=== PATIENT | female | born 1945 | race Caucasian/White ===

== ENCOUNTER → 2016-10-19 | Outpatient (CLI) | payer MEDICARE, BC ==
[~2016-10-19] VITALS: Ht 162.6 cm; Wt 103.0 kg
[~2016-10-19] MED LIST: ASPIRIN 81M81 MG/TA2 PO; ASPIRIN E.C. 8181 MG PO; BENICAR 20MG TA20 MG PO; BETAPACE 80MG80 MG PO; CALCIUM/MAGNESI1 T14 PO; CARDIZEM CD 24240 MG PO; CENTRAL VITE PO; CEPHALEXIN500 M1 PO; COZAAR 25MG25 MG/TAB PO; COZAAR 50MG50 MG/TAB PO; ELIQUIS 5MG PO; HCTZ 25MG TAB25 MG PO; L-THYROXINE; LEXAPRO 10MG10 MG; LEXAPRO 10MG10 MG PO; MEDIUM CHAIN TRIGLYCERIDES PO; P MED; SSRI; SYNTHROID0.05 MG/TA PO; TAMBOCOR50 MG; VITAMIN B COMPL1 T16 PO; VITAMIN C500 MG PO; WELLBUTRIN XL150 MG PO; WELLBUTRIN XL300 M1 PO; [UNRECOGNIZED DRUG - OTHER]
[2016-10-19 15:35] VITALS: BP 119/61; PULSE 78
[2016-10-19 16:04] VITALS: BP 119/61; PULSE 78
== END ==
LOC: LIGHT 14:41
DX: I10 Essential (primary) hypertension (principal); E03.8 Other specified hypothyroidism; E66.09 Other obesity due to excess calories; Z68.38 Body mass index [BMI] 38.0-38.9, adult; R73.01 Impaired fasting glucose

== ENCOUNTER → 2016-11-23 | Outpatient (CLI) | payer MEDICARE, BC ==
[~2016-11-23] VITALS: Ht 162.6 cm; Wt 103.9 kg
[2016-11-23 15:35] VITALS: BP 128/76; PULSE 69
[2016-11-23 17:53] VITALS: BP 128/76; PULSE 69
== END ==
LOC: LIGHT 13:00
DX: I10 Essential (primary) hypertension (principal); E03.8 Other specified hypothyroidism; E66.09 Other obesity due to excess calories; Z68.39 Body mass index [BMI] 39.0-39.9, adult

== ENCOUNTER → 2016-12-21 | Outpatient (CLI) | payer MEDICARE, BC ==
[~2016-12-21] VITALS: Ht 162.6 cm; Wt 103.9 kg
[2016-12-21 15:33] VITALS: BP 132/70; PULSE 84
== END ==
LOC: LIGHT 12:00
DX: I10 Essential (primary) hypertension (principal); E03.8 Other specified hypothyroidism; E66.8 Other obesity; R73.01 Impaired fasting glucose; Z68.39 Body mass index [BMI] 39.0-39.9, adult

== ENCOUNTER → 2017-01-18 | Outpatient (CLI) | payer MEDICARE, BC ==
[~2017-01-18] VITALS: Ht 162.6 cm; Wt 105.5 kg
[2017-01-18 15:33] VITALS: BP 124/75; PULSE 77
== END ==
LOC: LIGHT 09:18
DX: I10 Essential (primary) hypertension (principal); E03.8 Other specified hypothyroidism; E66.8 Other obesity; Z68.41 Body mass index [BMI] 40.0-44.9, adult; R73.01 Impaired fasting glucose

== ENCOUNTER → 2017-02-15 | Outpatient (CLI) | payer MEDICARE, BC ==
[~2017-02-15] VITALS: Ht 162.6 cm; Wt 104.1 kg
[2017-02-15 16:36] VITALS: BP 110/70; PULSE 76
== END ==
LOC: LIGHT 10:40
DX: Z02.89 Encounter for other administrative examinations (principal)

== ENCOUNTER → 2017-03-22 | Outpatient (CLI) | payer MEDICARE, BC ==
[~2017-03-22] VITALS: Ht 162.6 cm; Wt 102.6 kg
[2017-03-22 15:20] VITALS: BP 100/64; PULSE 70
== END ==
LOC: LIGHT 12:19
DX: I10 Essential (primary) hypertension (principal); E03.9 Hypothyroidism, unspecified; E66.9 Obesity, unspecified; Z71.3 Dietary counseling and surveillance; R73.01 Impaired fasting glucose

== ENCOUNTER → 2017-04-19 | Outpatient (CLI) | payer MEDICARE, BC ==
[~2017-04-19] VITALS: Ht 162.6 cm; Wt 100.7 kg
[2017-04-19 15:35] VITALS: BP 104/50; PULSE 68
== END ==
LOC: LIGHT 09:23
DX: I10 Essential (primary) hypertension (principal); E03.9 Hypothyroidism, unspecified; E66.9 Obesity, unspecified; Z68.37 Body mass index [BMI] 37.0-37.9, adult; Z71.3 Dietary counseling and surveillance; R73.01 Impaired fasting glucose

== ENCOUNTER → 2017-05-17 | Outpatient (CLI) | payer MEDICARE, BC ==
[~2017-05-17] VITALS: Ht 162.6 cm; Wt 97.5 kg
[2017-05-17 15:28] VITALS: BP 140/70; PULSE 76
== END ==
LOC: LIGHT 15:21
DX: E66.9 Obesity, unspecified (principal); Z68.36 Body mass index [BMI] 36.0-36.9, adult; Z71.3 Dietary counseling and surveillance

== ENCOUNTER → 2017-06-21 | Outpatient (CLI) | payer MEDICARE, BC ==
[~2017-06-21] VITALS: Ht 165.1 cm; Wt 96.8 kg
[2017-06-21 15:25] VITALS: BP 126/60; PULSE 72
== END ==
LOC: BHSO 05-17 16:01 → LIGHT 05-17 16:04
DX: I10 Essential (primary) hypertension (principal); E03.9 Hypothyroidism, unspecified; E66.9 Obesity, unspecified; Z68.35 Body mass index [BMI] 35.0-35.9, adult; Z71.3 Dietary counseling and surveillance; R73.01 Impaired fasting glucose

== ENCOUNTER → 2017-07-19 | Outpatient (CLI) | payer MEDICARE, BC ==
[~2017-07-19] VITALS: Ht 165.1 cm; Wt 97.5 kg
[2017-07-19 15:22] VITALS: BP 126/56; PULSE 72
== END ==
LOC: LIGHT 10:28
DX: I10 Essential (primary) hypertension (principal); E03.9 Hypothyroidism, unspecified; E66.9 Obesity, unspecified; Z68.35 Body mass index [BMI] 35.0-35.9, adult; Z71.3 Dietary counseling and surveillance; R73.01 Impaired fasting glucose

== ENCOUNTER → 2017-08-23 | Outpatient (CLI) | payer MEDICARE, BC ==
[~2017-08-23] VITALS: Ht 165.1 cm; Wt 97.5 kg
[~2017-08-23] MED LIST changes: -LEXAPRO 10MG10 MG
[2017-08-23 15:30] VITALS: BP 110/58; PULSE 60
== END ==
LOC: LIGHT 10:21
DX: I10 Essential (primary) hypertension (principal); E03.9 Hypothyroidism, unspecified; E66.9 Obesity, unspecified; Z68.35 Body mass index [BMI] 35.0-35.9, adult; Z71.3 Dietary counseling and surveillance; R73.01 Impaired fasting glucose

== ENCOUNTER → 2017-09-20 | Outpatient (CLI) | payer MEDICARE, BC ==
[~2017-09-20] VITALS: Ht 165.1 cm; Wt 98.9 kg
[2017-09-20 15:21] VITALS: BP 104/52; PULSE 72
== END ==
LOC: LIGHT 10:16
DX: I10 Essential (primary) hypertension (principal); E03.9 Hypothyroidism, unspecified; E66.9 Obesity, unspecified; Z68.35 Body mass index [BMI] 35.0-35.9, adult; Z71.3 Dietary counseling and surveillance; R73.01 Impaired fasting glucose

== ENCOUNTER → 2017-10-18 | Outpatient (CLI) | payer MEDICARE, BC ==
[~2017-10-18] VITALS: Ht 165.1 cm; Wt 99.1 kg
[2017-10-18 15:39] VITALS: BP 118/76; PULSE 68
== END ==
LOC: LIGHT 15:28
DX: I10 Essential (primary) hypertension (principal); E03.9 Hypothyroidism, unspecified; E66.9 Obesity, unspecified; Z71.3 Dietary counseling and surveillance; R73.01 Impaired fasting glucose
CPT/HCPCS: G0463

== ENCOUNTER → 2017-11-15 | Outpatient (CLI) | payer MEDICARE, BC ==
[~2017-11-15] VITALS: Ht 165.1 cm; Wt 99.1 kg
[2017-11-15 15:16] VITALS: BP 140/72; PULSE 80
== END ==
LOC: LIGHT 10:17
DX: I10 Essential (primary) hypertension (principal); E03.9 Hypothyroidism, unspecified; E66.9 Obesity, unspecified; Z68.36 Body mass index [BMI] 36.0-36.9, adult; Z71.3 Dietary counseling and surveillance; R73.01 Impaired fasting glucose
CPT/HCPCS: G0463

== ENCOUNTER → 2017-12-13 | Outpatient (CLI) | payer MEDICARE, BC ==
[~2017-12-13] VITALS: Ht 165.1 cm; Wt 100.2 kg
[2017-12-13 15:33] VITALS: BP 116/60; PULSE 68
== END ==
LOC: LIGHT 15:24
DX: I10 Essential (primary) hypertension (principal); E03.9 Hypothyroidism, unspecified; E66.9 Obesity, unspecified; Z68.36 Body mass index [BMI] 36.0-36.9, adult; Z71.3 Dietary counseling and surveillance; R73.01 Impaired fasting glucose
CPT/HCPCS: G0463

== ENCOUNTER → 2018-01-17 | Outpatient (CLI) | payer MEDICARE, BC ==
[~2018-01-17] VITALS: Ht 165.1 cm; Wt 101.1 kg
[2018-01-17 15:31] VITALS: BP 124/68; PULSE 80
== END ==
LOC: LIGHT 09:03
DX: I10 Essential (primary) hypertension (principal); E03.9 Hypothyroidism, unspecified; E66.9 Obesity, unspecified; Z68.37 Body mass index [BMI] 37.0-37.9, adult; Z71.3 Dietary counseling and surveillance; R73.01 Impaired fasting glucose
CPT/HCPCS: G0463

== ENCOUNTER → 2018-02-14 | Outpatient (CLI) | payer MEDICARE, BC ==
[~2018-02-14] VITALS: Ht 165.1 cm; Wt 101.2 kg
[~2018-02-14] MED LIST changes: +CARDIZEM CD 18180 MG PO; -TAMBOCOR50 MG; +TAMBOCOR50 MG PO
[2018-02-14 15:24] VITALS: BP 124/62; PULSE 72
== END ==
LOC: LIGHT 15:08
DX: I10 Essential (primary) hypertension (principal); E03.9 Hypothyroidism, unspecified; E66.9 Obesity, unspecified; Z68.36 Body mass index [BMI] 36.0-36.9, adult; Z71.3 Dietary counseling and surveillance; R73.01 Impaired fasting glucose
CPT/HCPCS: G0463

== ENCOUNTER → 2018-03-21 | Outpatient (CLI) | payer MEDICARE, BC ==
[~2018-03-21] VITALS: Ht 165.1 cm; Wt 103.9 kg
[2018-03-21 15:33] VITALS: BP 132/50; PULSE 72
== END ==
LOC: LIGHT 15:17
DX: I10 Essential (primary) hypertension (principal); E03.9 Hypothyroidism, unspecified; E66.9 Obesity, unspecified; Z68.37 Body mass index [BMI] 37.0-37.9, adult; Z71.3 Dietary counseling and surveillance; R73.01 Impaired fasting glucose
CPT/HCPCS: G0463

== ENCOUNTER → 2018-04-18 | Outpatient (CLI) | payer MEDICARE, BC ==
[~2018-04-18] VITALS: Ht 165.1 cm; Wt 102.1 kg
[2018-04-18 15:59] VITALS: BP 120/56; PULSE 76
== END ==
LOC: LIGHT 15:47
DX: E03.9 Hypothyroidism, unspecified (principal); E66.9 Obesity, unspecified; Z68.37 Body mass index [BMI] 37.0-37.9, adult; Z71.3 Dietary counseling and surveillance; R73.01 Impaired fasting glucose
CPT/HCPCS: G0463

== ENCOUNTER → 2018-05-02 | Outpatient (CLI) | payer MEDICARE, BC | LOC: MC.RAD 09:59 | DX: Z12.31 Encounter for screening mammogram for malignant neoplasm of breast (principal); R92.0 Mammographic microcalcification found on diagnostic imaging of breast ==

== ENCOUNTER → 2018-05-23 | Outpatient (CLI) | payer MEDICARE, BC ==
[~2018-05-23] VITALS: Ht 163.8 cm; Wt 103.2 kg
[2018-05-23 15:37] VITALS: BP 116/56; PULSE 72
== END ==
LOC: LIGHT 11:21
DX: I10 Essential (primary) hypertension (principal); E03.9 Hypothyroidism, unspecified; R73.01 Impaired fasting glucose; E66.9 Obesity, unspecified; Z68.38 Body mass index [BMI] 38.0-38.9, adult; Z71.3 Dietary counseling and surveillance
CPT/HCPCS: G0463

== ENCOUNTER → 2018-07-18 | Outpatient (CLI) | payer MEDICARE, BC ==
[~2018-07-18] VITALS: Ht 163.8 cm; Wt 104.8 kg
[2018-07-18 15:19] VITALS: BP 132/54; PULSE 80
== END ==
LOC: LIGHT 11:59
DX: I10 Essential (primary) hypertension (principal); E03.9 Hypothyroidism, unspecified; R73.01 Impaired fasting glucose; E66.9 Obesity, unspecified; Z68.38 Body mass index [BMI] 38.0-38.9, adult; Z71.3 Dietary counseling and surveillance
CPT/HCPCS: G0463

== ENCOUNTER → 2018-08-22 | Outpatient (CLI) | payer MEDICARE, BC ==
[~2018-08-22] VITALS: Ht 163.8 cm; Wt 104.1 kg
[2018-08-22 15:35] VITALS: BP 132/64; PULSE 72
== END ==
LOC: LIGHT 09:18
DX: I10 Essential (primary) hypertension (principal); E03.9 Hypothyroidism, unspecified; R73.01 Impaired fasting glucose; E66.9 Obesity, unspecified; Z68.38 Body mass index [BMI] 38.0-38.9, adult; Z71.3 Dietary counseling and surveillance
CPT/HCPCS: G0463

== ENCOUNTER → 2018-09-19 | Outpatient (CLI) | payer MEDICARE, BC ==
[~2018-09-19] VITALS: Ht 163.8 cm; Wt 103.4 kg
[2018-09-19 15:26] VITALS: BP 118/58; PULSE 68
== END ==
LOC: LIGHT 15:15
DX: I10 Essential (primary) hypertension (principal); E03.9 Hypothyroidism, unspecified; R73.01 Impaired fasting glucose; E66.9 Obesity, unspecified; Z68.38 Body mass index [BMI] 38.0-38.9, adult; Z71.3 Dietary counseling and surveillance
CPT/HCPCS: G0463

== ENCOUNTER → 2018-10-17 | Outpatient (CLI) | payer MEDICARE, BC ==
[~2018-10-17] VITALS: Ht 163.8 cm; Wt 103.0 kg
[2018-10-17 15:35] VITALS: BP 112/60; PULSE 88
== END ==
LOC: LIGHT 14:22
DX: I10 Essential (primary) hypertension (principal); E03.9 Hypothyroidism, unspecified; R73.01 Impaired fasting glucose; E66.9 Obesity, unspecified; Z71.3 Dietary counseling and surveillance
CPT/HCPCS: G0463

== ENCOUNTER → 2018-12-19 | Outpatient (CLI) | payer MEDICARE, BC ==
[~2018-12-19] VITALS: Ht 163.8 cm; Wt 102.7 kg
[2018-12-19 15:27] VITALS: BP 120/56; PULSE 72
== END ==
LOC: LIGHT 11-21 15:07
DX: I10 Essential (primary) hypertension (principal); E03.9 Hypothyroidism, unspecified; R73.01 Impaired fasting glucose; E66.9 Obesity, unspecified; Z68.38 Body mass index [BMI] 38.0-38.9, adult; Z71.3 Dietary counseling and surveillance
CPT/HCPCS: G0463

== ENCOUNTER → 2019-01-16 | Outpatient (CLI) | payer MEDICARE, BC ==
[~2019-01-16] VITALS: Ht 163.8 cm; Wt 102.1 kg
[2019-01-16 15:39] VITALS: BP 124/64; PULSE 80
== END ==
LOC: LIGHT 10:43
DX: I10 Essential (primary) hypertension (principal); E03.9 Hypothyroidism, unspecified; R73.01 Impaired fasting glucose; E66.9 Obesity, unspecified; Z68.37 Body mass index [BMI] 37.0-37.9, adult; Z71.3 Dietary counseling and surveillance
CPT/HCPCS: G0463

== ENCOUNTER → 2019-02-20 | Outpatient (CLI) | payer MEDICARE, BC ==
[~2019-02-20] VITALS: Ht 163.8 cm; Wt 103.0 kg
[2019-02-20 15:23] VITALS: BP 140/70; PULSE 80
== END ==
LOC: LIGHT 14:54
DX: I10 Essential (primary) hypertension (principal); E03.9 Hypothyroidism, unspecified; R73.01 Impaired fasting glucose; E66.9 Obesity, unspecified; Z68.38 Body mass index [BMI] 38.0-38.9, adult; Z71.3 Dietary counseling and surveillance
CPT/HCPCS: G0463

== ENCOUNTER → 2019-03-19 | Outpatient (CLI) | payer MEDICARE, BC ==
[~2019-03-19] MED LIST changes: +MOTRIN 600600 MG/TAB PO
== END ==
LOC: COL.RAD 02-26 07:30
DX: M50.322 Other cervical disc degeneration at C5-C6 level (principal); M50.222 Other cervical disc displacement at C5-C6 level; M48.02 Spinal stenosis, cervical region; Z95.0 Presence of cardiac pacemaker

== ENCOUNTER → 2019-03-20 | Outpatient (CLI) | payer MEDICARE, BC ==
[~2019-03-20] VITALS: Ht 163.8 cm; Wt 103.4 kg
[2019-03-20 15:31] VITALS: BP 140/60; PULSE 68
== END ==
LOC: LIGHT 11:39
DX: I10 Essential (primary) hypertension (principal); E03.9 Hypothyroidism, unspecified; R73.01 Impaired fasting glucose; E66.9 Obesity, unspecified; Z68.38 Body mass index [BMI] 38.0-38.9, adult; Z71.3 Dietary counseling and surveillance
CPT/HCPCS: G0463

== ENCOUNTER → 2019-04-17 | Outpatient (CLI) | payer MEDICARE, BC ==
[~2019-04-17] VITALS: Ht 163.8 cm; Wt 100.9 kg
[2019-04-17 15:30] VITALS: BP 148/52; PULSE 68
== END ==
LOC: LIGHT 15:23
DX: I10 Essential (primary) hypertension (principal); E03.9 Hypothyroidism, unspecified; R73.01 Impaired fasting glucose; E66.9 Obesity, unspecified; Z68.37 Body mass index [BMI] 37.0-37.9, adult; Z71.3 Dietary counseling and surveillance
CPT/HCPCS: G0463

== ENCOUNTER → 2019-05-22 | Outpatient (CLI) | payer MEDICARE, BC ==
[~2019-05-22] VITALS: Ht 163.8 cm; Wt 100.0 kg
[2019-05-22 15:24] VITALS: BP 100/50; PULSE 68
== END ==
LOC: LIGHT 09:49
DX: I10 Essential (primary) hypertension (principal); E03.9 Hypothyroidism, unspecified; R73.01 Impaired fasting glucose; E66.9 Obesity, unspecified; Z68.37 Body mass index [BMI] 37.0-37.9, adult; Z71.3 Dietary counseling and surveillance
CPT/HCPCS: G0463

== ENCOUNTER 2019-05-23 13:06 | Outpatient (RCR) | payer MEDICARE, BC ==
[~2019-05-23 13:06] MED LIST changes: -CENTRAL VITE PO; +MULTI VITAMINS1 TAB PO; +TAMBOCOR 1100 MG/TAB PO; -TAMBOCOR50 MG PO
[2019-09-18] MEDS ORDERED: ELIQUIS 2.5 PO (15:21)
[2019-09-28] MEDS ORDERED: COZAAR 50MG50 MG/TAB PO (09:30)
[2019-09-28] MEDS ORDERED: COZAAR 25MG25 MG/TAB PO (14:56)
[2019-09-28] MEDS ORDERED: ELIQUIS 5MG PO (14:58)
[2019-09-28] MEDS ORDERED: LEXAPRO 10MG10 MG PO (16:15)
== END 2019-08-21 | disposition home or self-care (01) ==
LOC: WSC
DX: G56.01 Carpal tunnel syndrome, right upper limb (principal); M65.9 Synovitis and tenosynovitis, unspecified

== ENCOUNTER → 2019-06-19 | Outpatient (CLI) | payer MEDICARE, BC ==
[~2019-06-19] VITALS: Ht 163.8 cm; Wt 99.1 kg
[~2019-06-19] MED LIST changes: +CENTRAL VITE PO; -MULTI VITAMINS1 TAB PO; -TAMBOCOR 1100 MG/TAB PO; +TAMBOCOR50 MG PO
[2019-06-19 15:33] VITALS: BP 126/60; PULSE 72
== END ==
LOC: LIGHT 11:44
DX: I10 Essential (primary) hypertension (principal); E03.9 Hypothyroidism, unspecified; R73.01 Impaired fasting glucose; E66.9 Obesity, unspecified; Z68.36 Body mass index [BMI] 36.0-36.9, adult; Z71.3 Dietary counseling and surveillance
CPT/HCPCS: G0463

== ENCOUNTER 2019-06-27 10:00 | Outpatient (RCR) | payer MEDICARE, BC | END 2019-07-18 13:36 | disposition home or self-care (01) | LOC: WSOT 10:00 | DX: M54.12 Radiculopathy, cervical region (principal); R20.2 Paresthesia of skin ==

== ENCOUNTER → 2019-07-17 | Outpatient (CLI) | payer MEDICARE, BC ==
[~2019-07-17] VITALS: Ht 163.8 cm; Wt 100.0 kg
[2019-07-17 15:26] VITALS: BP 106/64; PULSE 80
== END ==
LOC: LIGHT 14:49
DX: I10 Essential (primary) hypertension (principal); E03.9 Hypothyroidism, unspecified; R73.01 Impaired fasting glucose; E66.9 Obesity, unspecified; Z68.36 Body mass index [BMI] 36.0-36.9, adult; Z71.3 Dietary counseling and surveillance
CPT/HCPCS: G0463

== ENCOUNTER → 2019-08-21 | Outpatient (CLI) | payer MEDICARE, BC ==
[~2019-08-21] VITALS: Ht 163.8 cm; Wt 100.7 kg
[2019-08-21 15:30] VITALS: BP 124/50; PULSE 80
== END ==
LOC: LIGHT 15:19
DX: I10 Essential (primary) hypertension (principal); E03.9 Hypothyroidism, unspecified; R73.01 Impaired fasting glucose; E66.9 Obesity, unspecified; Z68.37 Body mass index [BMI] 37.0-37.9, adult; Z71.3 Dietary counseling and surveillance
CPT/HCPCS: G0463

== ENCOUNTER 2019-09-30 10:26 | Emergency (ER) | payer MEDICARE, BC ==
[~2019-09-30] VITALS: Ht 162.6 cm; Wt 102.3 kg
[~2019-09-30 10:26] MED LIST changes: -CENTRAL VITE PO; +ELIQUIS 2.5 PO; +MULTI VITAMINS1 TAB PO; +TAMBOCOR 1100 MG/TAB PO; -TAMBOCOR50 MG PO
[2019-09-30 10:42] VITALS: TEMP 96.3
[2019-09-30 11:13] LABS: BASO # 0.1 (0.0-0.2); BASO % 0.6 % (0.0-2.0); EOS # 0.1 (0.0-0.7); EOS % 1.3 % (0-4.0); GRAN # 6.3 (1.4-6.5); GRAN % 69.6 % (42.2-75.2); HEMATOCRIT 42.8 % (37.0-47.0); LYMPH # 1.8 (1.2-3.4); LYMPH % 19.8 % (20.0-51.0); MEAN CELL VOLUME 91 fl (80.0-100.0); MEAN CORPUSCULAR HEMOGLOBIN 30 pg (27.0-31.0); MEAN CORPUSCULAR HGB CONC 33 g/dl (33.0-37.0); MEAN PLATELET VOLUME 11.1 fl (7.4-10.4); MONO # 0.7 (0.1-0.6); PLATELET COUNT 220 K/mm3 (130-400); RED BLOOD COUNT 4.69 M/mm3 (4.10-5.30); REDCELL DISTRIBUTION WIDTH-CV 14.1 % (11.5-14.5)
[2019-09-30 11:19] LABS: ALANINE AMINOTRANSFERASE 42 U/L (9-52); ALBUMIN 3.8 gm/dL (3.5-5.0); ALKALINE PHOSPHATASE 92 U/L (50-136); ANION GAP 5 mmol/L (7-16); AST,SGOT 28 U/L (15-37); BILIRUBIN,TOTAL 0.5 mg/dL (0.0-1.0); BLOOD UREA NITROGEN 14 mg/dL (7-17); CALCIUM 8.7 mg/dL (8.4-10.2); CARBON DIOXIDE 31 mmol/L (22-30); CHLORIDE 105 mmol/L (98-107); CREATININE, serum 0.58 (0.52-1.25); GLUCOSE 115 mg/dL (74-106); LIPASE 90 U/L (23-300); SODIUM 141 mmol/L (137-145); TOTAL PROTEIN 6.7 gm/dL (6.4-8.2)
[2019-09-30 11:20] LABS: INR 1.2 (0.8-3.0); PROTHROMBIN TIME 14.1 SECONDS (9.7-12.8)
[2019-09-30 11:46] LABS: TROPONIN-I < 0.012 ng/mL (0.000-0.035)
[2019-09-30 11:54] LABS: ARTERIAL BLD GAS TCO2 CT 30.8; ARTERIAL BLOOD GAS HCO3 29.5 meq/L (22-26); ARTERIAL BLOOD GAS PCO2 42.9 mmHg (35-45); ARTERIAL BLOOD GAS pH 7.46 (7.35-7.45)
[2019-09-30] MEDS ORDERED: LASIX 20MG TABL20 MG PO (14:13)
[2019-09-30 14:23] VITALS: BP 149/74; PULSE 67
== END 2019-09-30 14:23 | disposition home or self-care (01) ==
LOC: COL.ER 10:26
PROVIDERS: Emergency Medicine
DX: I50.9 Heart failure, unspecified (principal); I48.91 Unspecified atrial fibrillation; Z79.82 Long term (current) use of aspirin
CPT/HCPCS: J1940; Q9967

== ENCOUNTER 2019-12-14 07:43 | Day surgery (SDC) | payer MEDICARE, BC ==
[~2019-12-14] VITALS: Ht 162.7 cm; Wt 97.0 kg
[~2019-12-14 07:43] MED LIST changes: +LASIX 20MG TABL20 MG PO; +PACERONE100 MG PO
[2019-12-14 08:24] VITALS: BP 150/85; PULSE 90; TEMP 98.2
[2019-12-14] MEDS ORDERED: LEXAPRO 10MG10 MG PO (08:44)
[2019-12-14 08:49] LABS: INR 1.1 (0.8-3.0); PROTHROMBIN TIME 12.7 SECONDS (9.7-12.8)
[2019-12-14 08:54] LABS: POTASSIUM 4.6 mmol/L (3.4-5.0)
[2019-12-14 09:27] LABS: THYROID STIMULATING HORMONE 3.56 uIU/mL (0.465-4.680)
[2019-12-14 10:15] VITALS: BP 119/60; PULSE 65
--- NOTE | 2019-12-14 10:15 | NUR ---
received report from Tika RN, pt is awake and alert, hob elevated 40 degrees, EKG done, pt is in NSR. takes water, call light in reach
[2019-12-14 10:30] VITALS: BP 122/61; PULSE 67
[2019-12-14 10:45] VITALS: BP 133/69; PULSE 67
--- NOTE | 2019-12-14 10:45 | NUR ---
takes snack, reads book, no c/o
[2019-12-14 11:00] VITALS: BP 129/60; PULSE 63
--- NOTE | 2019-12-14 11:00 | NUR ---
pt sits on side of bed, reviewed discharge inst. with pt on activity, driving, and moderate sedation. pt states has followup appt with Dr. Duncan in 2 weeks. pt has medication change to DC cardiozem, and no new RX, verbal understanding. pt up in room, dressed, and int d'cd intact. Called taxi for pt, phone number provided by [employer].
--- NOTE | 2019-12-14 11:30 | NUR ---
pt discharged via w/c to entrance for taxi
== END 2019-12-14 11:40 | disposition home or self-care (01) ==
LOC: COL.CAR 07:43
PROVIDERS: Internal Medicine Interventional Cardiology
DX: I48.0 Paroxysmal atrial fibrillation (principal); Z79.01 Long term (current) use of anticoagulants; I49.5 Sick sinus syndrome; Z95.0 Presence of cardiac pacemaker; E03.9 Hypothyroidism, unspecified; G62.9 Polyneuropathy, unspecified; E66.9 Obesity, unspecified; I11.0 Hypertensive heart disease with heart failure; I50.9 Heart failure, unspecified; I42.0 Dilated cardiomyopathy; I34.0 Nonrheumatic mitral (valve) insufficiency; Z88.5 Allergy status to narcotic agent
CPT/HCPCS: J2704; J7030

== ENCOUNTER → 2019-12-18 | Outpatient (CLI) | payer MEDICARE, BC ==
[~2019-12-18] VITALS: Ht 162.6 cm; Wt 97.3 kg
[2019-12-18 15:32] VITALS: BP 136/70; PULSE 64
== END ==
LOC: LIGHT 11-20 15:11
DX: I10 Essential (primary) hypertension (principal); R73.01 Impaired fasting glucose; I48.91 Unspecified atrial fibrillation
CPT/HCPCS: G0463

== ENCOUNTER → 2020-03-25 | Outpatient (CLI) | payer MEDICARE, BC ==
[~2020-03-25] VITALS: Ht 162.6 cm; Wt 90.7 kg
[2020-03-25 15:30] VITALS: BP 100/70; PULSE 72
== END ==
LOC: LIGHT 15:22
DX: E66.8 Other obesity (principal); Z68.34 Body mass index [BMI] 34.0-34.9, adult; I10 Essential (primary) hypertension; E03.9 Hypothyroidism, unspecified
CPT/HCPCS: G0463

== ENCOUNTER → 2020-04-22 | Outpatient (CLI) | payer MEDICARE, BC ==
[~2020-04-22] VITALS: Ht 162.6 cm; Wt 90.7 kg
[2020-04-22 16:24] VITALS: BP 138/80; PULSE 82
== END ==
LOC: LIGHT 11:46
DX: E66.8 Other obesity (principal); Z68.34 Body mass index [BMI] 34.0-34.9, adult; I10 Essential (primary) hypertension; E03.9 Hypothyroidism, unspecified; R73.01 Impaired fasting glucose
CPT/HCPCS: G0463

== ENCOUNTER → 2020-05-20 | Outpatient (CLI) | payer MEDICARE, BC ==
[~2020-05-20] VITALS: Ht 162.6 cm; Wt 90.9 kg
[2020-05-20 15:39] VITALS: BP 108/54; PULSE 68
== END ==
LOC: LIGHT 10:44
DX: E66.8 Other obesity (principal); Z68.34 Body mass index [BMI] 34.0-34.9, adult; I10 Essential (primary) hypertension; E03.9 Hypothyroidism, unspecified; R73.01 Impaired fasting glucose
CPT/HCPCS: G0463

== ENCOUNTER → 2020-06-17 | Outpatient (CLI) | payer MEDICARE, BC ==
[~2020-06-17] VITALS: Ht 162.6 cm; Wt 89.1 kg
[2020-06-17 16:10] VITALS: BP 106/70; PULSE 72
== END ==
LOC: LIGHT 14:50
DX: E66.8 Other obesity (principal); Z68.33 Body mass index [BMI] 33.0-33.9, adult
CPT/HCPCS: G0463

== ENCOUNTER → 2020-08-19 | Outpatient (CLI) | payer MEDICARE, BC ==
[~2020-08-19] VITALS: Ht 162.6 cm; Wt 88.0 kg
[~2020-08-19] MED LIST changes: +TOPROL XL 50MG50 MG PO
[2020-08-19 15:45] VITALS: BP 118/52; PULSE 72
== END ==
LOC: LIGHT 10:25
DX: E66.8 Other obesity (principal); Z68.34 Body mass index [BMI] 34.0-34.9, adult; I10 Essential (primary) hypertension; R73.01 Impaired fasting glucose
CPT/HCPCS: G0463

== ENCOUNTER 2021-12-04 09:56 | Inpatient (IN) | payer MEDICARE, BC ==
[2021-12-04] VITALS (284 sets, daily range): BP systolic 131–140; BP diastolic 94–95; PULSE 142–143; TEMP 98.1–98.4; O2SAT 84–100
[~2021-12-04] VITALS: Ht 162.6 cm; Wt 89.5 kg
[2021-12-04] MEDS ORDERED: ASPIRIN 81M81 MG/TA2 PO (10:16)
[2021-12-04 10:34] LABS: BASO # 0.1 K/mm3 (0.0-0.2); BASO % 0.7 % (0.0-2.0); EOS # 0.2 K/mm3 (0.0-0.7); EOS % 1.5 % (0.0-4.0); GRAN # 7.4 K/mm3 (1.4-6.5); GRAN % 66.9 % (42.2-75.2); HEMATOCRIT 41.5 % (37.0-47.0); HEMOGLOBIN 13.8 g/dl (12.5-16.0); LYMPH # 2.4 K/mm3 (1.2-3.4); LYMPH % 21.7 % (20.0-51.0); MEAN CELL VOLUME 92 fl (80.0-100.0); MEAN CORPUSCULAR HEMOGLOBIN 31 pg (27-31); MEAN CORPUSCULAR HGB CONC 33 g/dl (33.0-37.0); MEAN PLATELET VOLUME 11.3 fl (7.4-10.4); MONO % 8.6 % (1.7-9.3); PLATELET COUNT 299 K/mm3 (130-400); RED BLOOD COUNT 4.53 M/mm3 (4.10-5.30); REDCELL DISTRIBUTION WIDTH-CV 14.6 % (11.5-14.5)
[2021-12-04 10:43] LABS: ALBUMIN 3.6 gm/dL (3.4-4.8); BILIRUBIN,TOTAL 0.7 mg/dL (0.2-1.2); CALCIUM 9.2 mg/dL (8.4-10.2); CREATININE, serum 0.77 mg/dL (0.57-1.11); POTASSIUM 4.4 mmol/L (3.5-4.5); TOTAL PROTEIN 6.7 gm/dL (6.2-8.1)
[2021-12-04 10:49] LABS: TROPONIN-I 0.011 ng/mL (0.00-0.033)
[2021-12-04] MEDS ORDERED: LEXAPRO20 MG PO (10:58)
[2021-12-04 12:17] LABS: COLLECTION METHOD CLEAN CATCH
[2021-12-04 12:26] LABS: MUCOUS Present (NOT PRESENT); PH 6 (5-8); SQUAMOUS EPITHELIAL 0-2 /hpf (0-10); URINE APPEARANCE Clear (CLEAR/HAZY); URINE BACTERIA None Seen /hpf (NONE SEEN); URINE BILIRUBIN Negative (NEGATIVE); URINE BLOOD 2+ (NEGATIVE); URINE COLOR Yellow (YELLOW); URINE GLUCOSE Negative (NEGATIVE); URINE KETONE Negative (NEGATIVE); URINE LEUKOCYTE ESTERASE Trace (NEGATIVE); URINE NITRATE Negative (NEGATIVE); URINE PROTEIN(semi-quant) Negative (NEGATIVE); URINE UROBILINOGEN Negative (NEGATIVE)
--- NOTE | 2021-12-04 15:28 | NUR ---
PT ARRIVES TO THE MEDICAL FLOOR ROOM 318 BY ED STAFF AT ABOUT 1415, PT [id number], 02 ROOM AIR, PT ABLE TO AMBULATE TO BED INDEPENDENTLY, PT CURRENTLY DENIES SOA, N,V,D, PALPITATIONS WHILE SITTING. HEART RATE IN THE 140'S, DIASTOLIC ELEVATED. ASSESMENT COMPLETE. MED REC COMPLETE. POC DISCUSSED WITH PT. PT VERBALIZES UNDERSTANDING. ALL QUESTIONS/CONCERNS ANSWERED. THIS NURSE RECEIVED ORDERS TO TRANSFER PT TO ICU-06, PT CURRENTLY EATING SUPPER. THIS NURSE WILL ASSIST TRANSFER DOWNSTAIRS. VITALS MACHINE ON Q1 INTERVAL. ALL NEEDS MET AT THIS TIME. CALL LIGHT WITHIN REACH.
--- NOTE | 2021-12-04 15:41 | NUR ---
AMIADORONE DROP INITATED AT 1520, PT TOLERATING WELL THUS FAR. VITALS LICENSED CHEMICAL SPRAY TECHNICIAN ON Q1 INTERVAL. THIS NURSE D/W PT ADVERSE S/S TO REPORT. PT VERBALIZES UNDERSTANDING.
--- NOTE | 2021-12-04 17:30 | NUR ---
THIS NURSE PROVIDED REPORT TO UDAY SPANGLER, THIS NURSE WILL ASSIST INVESTIGATIVE ANALYST TO TRANSFER TO ICU-06 VIA WHEELCHAIR. PT BELONGINGS WITH HER. ALL NEEDS MET AT THIS TIME. TRANSFER AT 1730.
--- NOTE | 2021-12-04 18:00 | NUR ---
PT TO UNIT FROM MEDICAL FOR AMIODARONE DRIP AND CARDIOVERSION IN AM. PT IS MOVES SELF FROM MEDICAL BED TO ICU BED. PT IS STEADY ON FEET AND AMBULATES WELL. PT DENIES PAIN. PT SHOWS AFIB WITH RVR ON MONITOR. PT IS ON ICU MONITORING. NO COMPLAINTS AT THIS TIME. CALL LIGHT IN HAND. WILL REPORT TO ONCOMING RN.
--- NOTE | 2021-12-04 19:46 | NUR ---
Assessment complete and charted. Denies needs. Denies pain. Call light in reach.
--- NOTE | 2021-12-04 23:22 | NUR ---
2245: PATIENT UP TO RESTROOM AND REPORTED ANXIETY AND SOA AFTER RETURNING TO BED. OXYGEN SATURATIONS 88%, UNABLE TO COMPLETE SENTENCES. INCREASE FLOW TO 5LITERS. FRANCESCO LOMAS NOTIFIED. GIVEN ATIVAN X1 DOSE AND PO METOPROLOL FOR PULSE IN 150S. PER FRANCESCO ALSO GIVE 40MG OF LASIX AND PLACE MELÉNDEZ. MELÉNDEZ WAS PLACED AND LASIX GIVEN. 2310: RADIOLOGY COMPLETED CRX. RESPIRATORY PLACING PATIENT ON AIRVO AT 40 L 75%. 2325: PATIENT BECOMING INCREASING CONFUSED. ATTEMPTING TO PULL AT LINES AND STATING "MOM." DEFIB PADS PLACED ON PATIENT. ABG PENDING. FRANCESCO LOMAS IS AT BEDSIDE.
[2021-12-04 23:41] LABS: ARTERIAL BLD GAS O2 SATURATION 96.6 % (92-100); ARTERIAL BLD GAS TCO2 CT 26.8; ARTERIAL BLOOD GAS BASE EXCESS -0.1 (-2-2); ARTERIAL BLOOD GAS HCO3 25.4 meq/L (22-26); ARTERIAL BLOOD GAS PCO2 44.6 mmHg (35-45); ARTERIAL BLOOD GAS PO2 88.3 mmHg (80-100); ARTERIAL BLOOD GAS pH 7.37 (7.35-7.45)
[2021-12-05] VITALS (962 sets, daily range): BP systolic 93–142; BP diastolic 63–106; PULSE 59–152; TEMP 97.8–99.4; O2SAT 68–100
--- NOTE | 2021-12-05 00:17 | NUR ---
CT chest pending. Radiology aware and will call when CT open
[2021-12-05 05:50] LABS: BASO # 0.1 K/mm3 (0.0-0.2); BASO % 0.5 % (0.0-2.0); EOS % 0.4 % (0.0-4.0); GRAN # 8.5 K/mm3 (1.4-6.5); GRAN % 75.6 % (42.2-75.2); HEMATOCRIT 41.6 % (37.0-47.0); HEMOGLOBIN 13.9 g/dl (12.5-16.0); LYMPH # 1.6 K/mm3 (1.2-3.4); LYMPH % 14.2 % (20.0-51.0); MEAN CELL VOLUME 91 fl (80.0-100.0); MEAN CORPUSCULAR HEMOGLOBIN 30 pg (27-31); MEAN CORPUSCULAR HGB CONC 33 g/dl (33.0-37.0); MEAN PLATELET VOLUME 11.1 fl (7.4-10.4); MONO % 8.9 % (1.7-9.3); PLATELET COUNT 268 K/mm3 (130-400); RED BLOOD COUNT 4.59 M/mm3 (4.10-5.30); REDCELL DISTRIBUTION WIDTH-CV 14.7 % (11.5-14.5)
[2021-12-05 06:04] LABS: ALBUMIN 3.3 gm/dL (3.4-4.8); CALCIUM 9.2 mg/dL (8.4-10.2); CREATININE, serum 0.72 mg/dL (0.57-1.11); MAGNESIUM 2.1 mg/dL (1.6-2.6); PHOSPHOROUS 4.8 mg/dL (2.3-4.7); POTASSIUM 4.1 mmol/L (3.5-4.5)
--- NOTE | 2021-12-05 07:12 | NUR ---
Report given to UDAY Morin
--- NOTE | 2021-12-05 10:00 | NUR ---
REPORT RECEIVED FROM CARSON FRYE. CARE ASSUMED. PT IS SLEEPY BUT WAKES TO VOICE. VSS. WILL CONTINUE TO MONTIOR.
--- NOTE | 2021-12-05 14:38 | NUR ---
SW met with patient to complete intake. Patient states that she lives [place] mile outside of [facility] and her next of kin is her sister in law Eneida Nolasco [phone]. Patient states that she does not use a walker nor a cane, is independent with her ADL's, and does not utilize any out side services such has home health. Patient states that her PCPis Dr. Busch and pharmacy is [facility]. Patient states that she she does not have any one appointed as her DPOA/HC, and plans to return to her [place]. SW will continue to follow. [place] Plan: Home
--- NOTE | 2021-12-05 20:25 | NUR ---
Assessment complete and charted. Patient denies needs. Call light in reach.
[2021-12-06] VITALS (1028 sets, daily range): BP systolic 109–143; BP diastolic 70–98; PULSE 80–91; TEMP 98–99; O2SAT 82–100
--- NOTE | 2021-12-06 04:40 | NUR ---
PATIENT REPORTS SOA. UPPER ALFARO WHEEZING, LOWER LOBES DIMINISHED. SPOKE WITH FRANCESCO LOMAS. LASIX ORDERS RECEIVED. PROVIDED TO PATIENT.
[2021-12-06 05:52] LABS: HEMATOCRIT 42.7 % (37.0-47.0); HEMOGLOBIN 14.2 g/dl (12.5-16.0); MEAN CELL VOLUME 92 fl (80.0-100.0); MEAN CORPUSCULAR HEMOGLOBIN 31 pg (27-31); MEAN CORPUSCULAR HGB CONC 33 g/dl (33.0-37.0); MEAN PLATELET VOLUME 11.7 fl (7.4-10.4); PLATELET COUNT 278 K/mm3 (130-400); RED BLOOD COUNT 4.65 M/mm3 (4.10-5.30); REDCELL DISTRIBUTION WIDTH-CV 14.6 % (11.5-14.5)
[2021-12-06 06:07] LABS: ALBUMIN 3.7 gm/dL (3.4-4.8); CALCIUM 9.4 mg/dL (8.4-10.2); CREATININE, serum 0.81 mg/dL (0.57-1.11); MAGNESIUM 1.9 mg/dL (1.6-2.6); PHOSPHOROUS 3.5 mg/dL (2.3-4.7); POTASSIUM 3.6 mmol/L (3.5-4.5)
[2021-12-06 06:26] LABS: LYMPHOCYTE 3 % (20.0-51.0); NEUTROPHILS 93 % (42.0-75.2); PLATELET ESTIMATE NORMAL (NORMAL)
--- NOTE | 2021-12-06 07:00 | NUR ---
PT HAVING RUNS OF WHAT APPEARS TO BE TORSADES. PT IS ASYMPTAMATIC. OTHER VSS. PACER PADS ON AND MONITOR IN ROOM. AMIO, METOPROLOL, ASA, AND HEPARIN GIVEN. POTASSIUM REPLACEMENT STARTED. WILL CONTINUE TO MONTIOR CLOSELY.
--- NOTE | 2021-12-06 07:24 | NUR ---
Report given to UDAY Bean. Patient having runs of vtach. Cardiology and hospitalist were notified. Patient asymptomatic, sleeping during episodes. VS stable.
--- NOTE | 2021-12-06 08:21 | NUR ---
CALLED AND NOTIFIED OF PT'S RUNS OF WHAT APPEARS TO BE TORSADES. ALREADY REPLACING POTASSIUM AND PO MEDS GIVEN, BUT MENTIONED MAG LEVEL OF 1.9. ORDER RECEIVED TO GIVE 2GRAM IV MAG.
--- NOTE | 2021-12-06 08:56 | NUR ---
ON THE UNIT. SHOWN PTS TELE STRIPS AND UPDATED.
--- NOTE | 2021-12-06 10:27 | NUR ---
WAYNE FROM [employer] NOTIFIED OF NEED TO INTEROGATE PT'S PACER. PT'S PACER/AICD INTEROGATED AND UPLOADED.
--- NOTE | 2021-12-06 14:07 | NUR ---
PT WENT INTO TORSADES FOR 32. PT WENT UNRESPONSIVE. PT CAME BACK ON HER OWN, AND BACK TO SR IN THE 70'S. BP 110/69. NOTIFIED. STATED HE WILL CALL [employer] AND CALL ME BACK. ALSO NOTIFIED AND ORDERS RECEIVED FOR LABS. WAYNE WITH [employer] CALL THIS RN AND INSTRUCTED HOW TO CHANGE PT'S LOWER RATE ON HER PACEMAKER FROM 60 TO 90. SPOKE AGAIN WITH AND ORDERS RECEIVED FOR TO CHANGE PACEMAKER LOWER PARAMETER FROM 60-90, ORDERS TO DC METOPROLOL, GIVEN MAG 2GRAM IV NOW, PLACE PT ON PACER PADS (WHICH HAVE BEEN ON SINCE EARLY THIS AM, AND MONITOR IN ROOM). WILL CONTINUE TO MONTIOR CLOSELY.
[2021-12-06 14:48] LABS: CALCIUM 8.8 mg/dL (8.4-10.2); POTASSIUM 4.2 mmol/L (3.5-4.5)
[2021-12-06 15:04] LABS: CREATININE, serum 0.96 mg/dL (0.57-1.11); MAGNESIUM 2.4 mg/dL (1.6-2.6)
--- NOTE | 2021-12-06 15:17 | NUR ---
MAG LEVEL BACK AT 2.4. CLARIFIED WITH DR.SMAIRIAT MURRAY TO GIVE THE ADDITIONAL 2GRAM IV MAG. WILL KEEP PT NPO AT MIDNIGHT FOR CARDIAC CATH TOMORROW.
--- NOTE | 2021-12-06 16:55 | NUR ---
Assumed care of pt. VSS.
[2021-12-07] VITALS (1312 sets, daily range): BP systolic 111–130; BP diastolic 66–79; PULSE 88–95; TEMP 97.9–99.4; O2SAT 71–98
[2021-12-07 05:24] LABS: HEMATOCRIT 39.4 % (37.0-47.0); HEMOGLOBIN 13.6 g/dl (12.5-16.0); MEAN CELL VOLUME 89 fl (80.0-100.0); MEAN CORPUSCULAR HEMOGLOBIN 31 pg (27-31); MEAN CORPUSCULAR HGB CONC 35 g/dl (33.0-37.0); MEAN PLATELET VOLUME 11.3 fl (7.4-10.4); PLATELET COUNT 218 K/mm3 (130-400); RED BLOOD COUNT 4.42 M/mm3 (4.10-5.30); REDCELL DISTRIBUTION WIDTH-CV 14.6 % (11.5-14.5)
[2021-12-07 05:56] LABS: ALBUMIN 3.2 gm/dL (3.4-4.8); CALCIUM 8.7 mg/dL (8.4-10.2); CREATININE, serum 0.71 mg/dL (0.57-1.11); MAGNESIUM 2.5 mg/dL (1.6-2.6); PHOSPHOROUS 2.8 mg/dL (2.3-4.7); POTASSIUM 4.1 mmol/L (3.5-4.5)
[2021-12-07 06:02] LABS: LYMPHOCYTE 10 % (20.0-51.0); NEUTROPHILS 79 % (42.0-75.2); PLATELET ESTIMATE NORMAL (NORMAL)
--- NOTE | 2021-12-07 07:15 | NUR ---
Alert and resting in bed; has a yu catheter and reporting she has the urge to "pee". Catheter tubing not kinked and flushed at this time. Received fluid back out from yu after flushing and urine was noted in yu tubing. Will continue to monitor. Right arm swollen/reddened and firm to the touch after previous infiltration of amiodarone. Borders are marked and roof truss detailer RN reports no increase in swellling border however feels that it became more firm throughout the shift. Radial pulse +2 distal to infiltration site. Hospitalist aware.
--- NOTE | 2021-12-07 10:28 | NUR ---
The patient is to have a heart cath today. MIHAI met with the patient to establish next of kin and discussed a DPOA-HC. The patient states that she does not have a DPOA-HC, but would be interested in completing one while here. MIHAI provided. The patient verbalized that if she cannot make her medical decisions she wants her [id number], Eneida Gustafson (ph#[phone]), as her DPOA-HC and then her brother, Agustin Constantino, as the alternate. MIHAI and UDAY Maki, witnessed the patient's signature. MIHAI provided the patient with the original and some copies. MIHAI placed a copy in the patient's chart. MIHAI updated the patient's [id number], Eneida.
--- NOTE | 2021-12-07 14:45 | NUR ---
Returned from dentures lab technician. Right radial site assessed with garden labourer RN. Site clean and intact with no sign of hematoma. Patient alert and in no distress. VS stable; will continue to monitor.
--- NOTE | 2021-12-07 19:11 | NUR ---
PT REPORT GIVEN TO UDAY PRIDE.
--- NOTE | 2021-12-07 22:47 | NUR ---
REMOVED WRIST DEVICE AFTER LAST 2 MLS REMOVED, BANDAGED, SMALL PUNCTURE WOUND FOUND SCABBED OVER NO SWELLING FOUND WRIST SPLINT IN USE
[2021-12-08] VITALS (639 sets, daily range): BP systolic 107–128; BP diastolic 56–67; PULSE 90–94; TEMP 97.8–98.2; O2SAT 71–99
--- NOTE | 2021-12-08 01:45 | NUR ---
NO SWELLING, OR REDNESS, FOUND, SPLINT INTACK. DENIES PAIN IN AREA
--- NOTE | 2021-12-08 10:46 | NUR ---
Initial visit; Patient thanked [employer] for looking in on her and offering God's blessings. [employer] will keep Tricia, who is Christian in her prayers.
--- NOTE | 2021-12-08 11:06 | NUR ---
PT/OT are recommending home with home health. MIHAI and SW student met with the patient to address therapy's recommendation. The patient states that home health sounds like a good idea and is agreeable to it. MIHAI provided her with Medicare[employer]'s list of home health agencies that serve [place]. The patient chose [facility]. MIHAI contacted and faxed a referral to Linda at [facility]. Linda reports that they are able to accept the patient for services. *Discharge plan: home with home health*
[2021-12-08] MEDS ORDERED: LASIX 20MG TABL20 MG PO (11:48)
--- NOTE | 2021-12-09 11:38 | NUR ---
The patient discharged home yesterday afternoon, 12/09, with home health services for senior living/PT/OT from [facility]. SW notified and faxed orders to Linda at [facility] on this day. No additional needs at this time.
== END 2021-12-08 15:20 | disposition home health service (06) | DRG 286 ==
LOC: COL.ER 09:56 → ICU 12:37 → MEDICAL 12:37 → ICU 15:01
PROVIDERS: Internal Medicine; Nurse Practitioner Family; Physician Assistant; Student in an Organized Health Care Education/Training Program; ADMIT Internal Medicine
PROC: 5A0935A Assistance with Respiratory Ventilation, Less than 24 Consecutive Hours, High Flow/Velocity Cannula (ICD-10-PCS; 2021-12-04)
PROC: 5A2204Z Restoration of Cardiac Rhythm, Single (ICD-10-PCS; 2021-12-05)
PROC: 4B02XSZ Measurement of Cardiac Pacemaker, External Approach (ICD-10-PCS; principal; 2021-12-06)
PROC: 4A023N7 Measurement of Cardiac Sampling and Pressure, Left Heart, Percutaneous Approach (ICD-10-PCS; 2021-12-07)
PROC: B211YZZ Fluoroscopy of Multiple Coronary Arteries using Other Contrast (ICD-10-PCS; 2021-12-07)
DX: I48.91 Unspecified atrial fibrillation (principal); J96.01 Acute respiratory failure with hypoxia; I50.42 Chronic combined systolic (congestive) and diastolic (congestive) heart failure; I11.0 Hypertensive heart disease with heart failure; E78.5 Hyperlipidemia, unspecified; I47.1 Supraventricular tachycardia; F41.9 Anxiety disorder, unspecified; F32.A Depression, unspecified; E03.9 Hypothyroidism, unspecified; I48.92 Unspecified atrial flutter; D72.829 Elevated white blood cell count, unspecified; I80.8 Phlebitis and thrombophlebitis of other sites; I27.20 Pulmonary hypertension, unspecified; Z20.822 Contact with and (suspected) exposure to COVID-19; Z79.890 Hormone replacement therapy; Z95.818 Presence of other cardiac implants and grafts; Z79.82 Long term (current) use of aspirin; Z95.0 Presence of cardiac pacemaker; Z23 Encounter for immunization
CPT/HCPCS: 99223-AI; 99232-AI; 99233-AI; 99239; A4314; C1769; J0153; J0282; J1644; J1940; J2060; J2250; J3010; J3475; J3480; J7030; J7060; Q9967

== ENCOUNTER → 2022-01-15 | Outpatient (CLI) | payer MEDICARE, BC ==
[~2022-01-15] MED LIST changes: +LEXAPRO20 MG PO
== END ==
LOC: COL.RAD 16:43
DX: I51.7 Cardiomegaly (principal)

== ENCOUNTER → 2022-05-31 | Outpatient (CLI) | payer MEDICARE, BC ==
[2022-05-31 16:17] LABS: CALCIUM 9.1 mg/dL (8.4-10.2); CREATININE, serum 0.75 mg/dL (0.57-1.11); POTASSIUM 4.4 mmol/L (3.5-4.5)
== END ==
LOC: ZCOL.LAB 13:38
PROVIDERS: Internal Medicine Interventional Cardiology
DX: I48.91 Unspecified atrial fibrillation (principal)

== ENCOUNTER → 2024-01-19 | Outpatient (CLI) | payer MEDICARE, BC | LOC: MC.RAD 12:37 | DX: N63.13 Unspecified lump in the right breast, lower outer quadrant (principal) ==